=== PATIENT | female | born 1995 | race Hispanic/Latino ===

== ENCOUNTER 2018-03-23 08:00 | Inpatient (IN) | payer BC ==
[~2018-03-23] VITALS: Ht 157.5 cm; Wt 112.5 kg
--- NOTE | 2018-03-29 14:43 | PCM.HP ---
OB-Chief Complaint and HPI Date/Diagnosis Date: Mar 29, 2018 Time: 14:39 Admit Dx: (1) 40 weeks gestation of ICD Codes: Z3A.40 - 40 weeks gestation of SNOMED: 78275052 Chief Complaint/History(PI) : 1 Para: 0 EDC: Mar 23, 2018 EGA: 40w6d Reason for admission: active labor Past Family/Social History Patient History: Diabetes mellitus 33 FATHER, Onset:40's - 50 Hypertension 32 MOTHER, Onset:40's - 50 No known health problems G8 BROTHER G8 SISTER G8 SISTER Blood Type: O+ Rubella: immune RPR/VDRL: Negative GBS Status: Negative HBsAG: Negative OB EXAM Physical Exam Vital Signs: RN Vital Signs have been reviewed: Yes, Weight: 249 Allergies Coded Allergies Type Severity Reaction Last Updated Verified No Known Allergies 03/14/18 No LABS Laboratory Tests Test 03/29/18 14:50 HIV-1 Antibody NON-REACTIVE (NONREACTIVE) HIV-2 Antibody NON-REACTIVE (NONREACTIVE) HEENT: NCAT Lungs: Clear Abdomen: Gravid Reflexes: Normal Cervical Dilatation: 1cm Effacement: 25% Station: -3 Membranes: Intact Heart Rate: 130's Accelerations: Accelerations Present Decelerations: No Decelerations Short Term Variability: Present Penitentiary Variability: Average (6-25) Contractions on Admission: 6-10 Minutes Apart Intensity: Firm Presentation: vertex OB Assessment and Plan Assessment/Plan Reason for admission: active labor Plan: Expectant Management SALVADOR BIGGS MD Mar 29, 2018 14:43
[2018-03-29] MEDS ORDERED: PREN1TAB59 PO (14:45)
[2018-03-29 14:59] LABS: BASOPHIL % 0.1 % (0.0-0.2); EOSINOPHIL # 0.1 10^3/uL (0.0-0.2); EOSINOPHIL % 0.5 % (0.0-5.0); LYMPHOCYTES # 1.9 10^3/uL (1.0-4.8); MEAN CELL HGB 28.1 pg (26-34); MEAN CORP VOLUME 85.2 fL (78-100); MEAN PLATELET VOLUME 10.4 fL (7.8-11.0); MONOCYTES # 0.8 10^3/uL (0.3-0.8); NEUTROPHIL # 12.1 10^3/uL (1.8-7.7); NEUTROPHILS % 80.9 % (41.0-85.0); RED CELL DISTRIBUTION WIDTH 14.8 % (11.5-14.5); WHITE BLOOD CELL 14.9 10^3/uL (4.5-11.0)
[2018-03-29] MEDS ORDERED: D5LR 1000ML 1,000 ML IV SCH (15:00)
[2018-03-29] MEDS ORDERED: XYLOCAINE SQ PRN (15:00)
[2018-03-29] MEDS ORDERED: BICITRA PO ONE (15:00)
[2018-03-29] MEDS ORDERED: PHENERGAN IV PRN (15:00)
[2018-03-29] MEDS ORDERED: DEMEROL IV PRN (15:00)
[2018-03-30] MEDS ORDERED: BENADRYL ONE (01:08)
[2018-03-30] MEDS ORDERED: BENADRYL IV STA (03:15)
[2018-03-30] MEDS ORDERED: LACTATED RINGERS 1,000 ML ONE ×4 (05:14→23:33)
[2018-03-30] MEDS ORDERED: OXYTOCIN 30 UNIT/NS 500 ML 500 ML IV ONE ×2 (05:14→05:15)
[2018-03-30] MEDS ORDERED: LIDOCAINE 1% VIAL ONE (05:14)
[2018-03-30] MEDS ORDERED: PHENERGAN ONE (06:17)
[2018-03-30] MEDS ORDERED: DEMEROL ONE (06:17)
[2018-03-30] MEDS: LACTATED RINGERS 1,000 ML IV SCH ×3 (06:31→18:00)
[2018-03-30] MEDS ORDERED: WATER ONE (08:28)
[2018-03-30] MEDS ORDERED: OXYTOCIN 30 UNIT/NS 500 ML 500 ML IV SCH (11:30)
[2018-03-30] MEDS ORDERED: NAROPIN 0.2% 100 ML BAG 100 ML ONE (13:51)
[2018-03-30] MEDS ORDERED: NAROPIN 0.2% 40 MG/20 ML VIAL ONE ×2 (20:38→20:46)
[2018-03-30] MEDS ORDERED: TYLENOL PO ONE (23:34)
[2018-03-31] MEDS ORDERED: DERMOPLAST SPRAY TP ONE (02:33)
[2018-03-31] MEDS: LACTATED RINGERS 1,000 ML IV SCH (03:23)
--- NOTE | 2018-03-31 05:36 | PCM.OBDEL1 ---
OB Delivery 7-18 Delivery Summary DATE: Mar 31, 2018 TIME: 05:31 Delivery: Spont. Vaginal Delivery, Manual Placenta Extractio (done following separation of umbilical cord from placenta) EBL/ESTIMATED BLOOD LOSS: (MIL: 400 Repair: 2 Degree Summary of Delivery: Patient was fully dilated and felt urge to push. She pushed and delivered a viable male from the ARMEN position with no difficulty. Cord was clamped and cut, and infant was handed to mother. Cord blood and blood gas were collected. Placenta with three vessel cord was delivered by manual extraction, after cord during the delivery of the placenta. Mother was examined for lacerations and found to have a second degree perineal laceration, repaired with 2-0 Vicryl. Fundus was firm. Infant and mother left in room. Infant Information Date of : Mar 31, 2018 Time of : 04:49 (Placenta 0457) Scoring Interval: One (1) Minute (8 Five minute 9) Sex of Infant: Male Weight (Grams): 3801 Presentation: vertex/ARMEN SALVADOR BIGGS MD Mar 31, 2018 05:36
[2018-03-31] MEDS ORDERED: TYLENOL PO PRN ×2 (06:00)
[2018-03-31] MEDS ORDERED: MYLANTA PO PRN (06:00)
[2018-03-31] MEDS ORDERED: DERMOPLAST SPRAY TP PRN (06:00)
[2018-03-31] MEDS ORDERED: TUCKS TP PRN (06:00)
[2018-03-31] MEDS ORDERED: OXYTOCIN 30 UNIT/NS 500 ML 500 ML IV SCH ×2 (06:00)
[2018-03-31] MEDS ORDERED: LANOLIN HYDROUS TP PRN (06:00)
[2018-03-31] MEDS ORDERED: NORCO 5MG PO PRN (06:00)
[2018-03-31] MEDS ORDERED: PITOCIN ONE (06:02)
[2018-03-31] MEDS ORDERED: PITOCIN IM ONE (07:30)
[2018-03-31] MEDS ORDERED: MOTRIN ONE ×2 (09:22→20:42)
[2018-03-31] MEDS ORDERED: NORCO 5MG PO ONE ×2 (09:22→14:20)
[2018-03-31] MEDS: MOTRIN PO PRN ×2 (09:29→20:54)
[2018-03-31] MEDS: NORCO 5MG PO PRN ×2 (09:30→14:27)
[2018-03-31] MEDS ORDERED: TUCKS ONE (09:32)
[2018-03-31] MEDS ORDERED: COLACE PO ONE (20:42)
[2018-03-31] MEDS ORDERED: COLACE PO SCH (21:00)
[2018-04-01] MEDS ORDERED: MOTRIN ONE (03:05)
[2018-04-01] MEDS ORDERED: NORCO 5MG PO ONE (03:06)
[2018-04-01] MEDS: MOTRIN PO PRN (03:10)
[2018-04-01] MEDS: NORCO 5MG PO PRN (03:11)
[2018-04-01 05:03] LABS: BASOPHIL % 0.2 % (0.0-0.2); EOSINOPHIL # 0.3 10^3/uL (0.0-0.2); EOSINOPHIL % 2.7 % (0.0-5.0); HEMOGLOBIN 8.9 g/dL (12.0-15.0); LYMPHOCYTES # 2.7 10^3/uL (1.0-4.8); LYMPHOCYTES % 23.6 % (24.0-44.0); MEAN CELL HGB 27.5 pg (26-34); MEAN CELL HGB CONCENTRATION 31.2 g/dL (33-37); MEAN PLATELET VOLUME 10.2 fL (7.8-11.0); MONOCYTES # 0.9 10^3/uL (0.3-0.8); MONOCYTES % 7.6 % (5.0-12.0); NEUTROPHIL # 7.5 10^3/uL (1.8-7.7); NEUTROPHILS % 65.6 % (41.0-85.0); WHITE BLOOD CELL 11.5 10^3/uL (4.5-11.0)
[2018-04-01] MEDS ORDERED: IBUP-1131 PO (08:17)
--- NOTE | 2018-04-01 08:19 | PRM.DC ---
OB Discharge Summary Discharge Summary Date of Arrival on Unit: Mar 29, 2018 Reason for Visit: Labor Discharge Date: Apr 01, 2018 Patient History: Diabetes mellitus 33 FATHER, Onset:40's - 50 Hypertension 32 MOTHER, Onset:40's - 50 No known health problems G8 BROTHER G8 SISTER G8 SISTER History of Present Illness: (1) 40 weeks gestation of Status: Resolved ICD Code: Z3A.40 - 40 weeks gestation of SNOMED: 37464387 (2) Vaginal delivery ICD Code: O80 - Encounter for full-term uncomplicated delivery SNOMED: 339311200 Complications: No Complications Medications: Motrin Discharge Diagnosis: Status Post Discharge Disposition: SALVADOR Sykes MD Apr 01, 2018 08:19
--- NOTE | 2018-04-01 08:20 | PRM.PN ---
Subjective Progress Notes Post Op/Hospital Day: Hospital day #: (4 PPD1 s/p ) Subjective: Feels better, Less pain Objective Vital Signs and I&O BP: 113/53 HR: 80 RR: 18 T: 98.0F SO2: 98% General: No acute distress Respiratory Auscultation: Normal Breath Sounds Cardiovascular auscultation: Normal S1 S2, RRR Gastrointestinal: Comment (Fundus firm) Skin: Normal Neurological: Normal mental status Meds/Labs/Orders Medication List: Current Medications Medications (Trade) Dose Ordered Sig/Angelica PRN Reason Start Time Stop Time Status Last Admin Acetaminophen (Tylenol) 650 mg Q4HR PRN PAIN MILD 03/31/18 06:00 04/30/18 05:59 Acetaminophen (Tylenol) 1,000 mg Q6HR PRN PAIN 03/31/18 00:00 04/30/18 00:00 03/31/18 03:23 Acetaminophen/ Hydrocodone Bitart ([place] 5mg) 1 ea Q4HR PRN PAIN MODERATE 03/31/18 06:00 04/30/18 05:59 04/01/18 03:11 Acetaminophen/ Hydrocodone Bitart ([place] 5mg) 2 ea Q4HR PRN PAIN SEVERE 03/31/18 06:00 04/30/18 05:59 Benzocaine (Dermoplast Briggs) To perineum PRN sut... PRN PRN Perineal Pain 03/31/18 06:00 04/30/18 05:59 03/31/18 09:36 Dextrose/Lactated Ringer's 1,000 ml @ 125 mls/hr IV 03/29/18 15:00 04/28/18 14:59 Docusate Sodium (Colace) 100 mg HS 03/31/18 21:00 04/30/18 20:59 03/31/18 20:53 Ibuprofen (Motrin) 800 mg Q6HR PRN CRAMPING/PAIN 03/31/18 06:00 04/30/18 05:59 04/01/18 03:10 Lanolin (Lanolin Hydrous) Apply to nipples PRN dry, pain... TID PRN pain/cracking 03/31/18 06:00 04/30/18 05:59 Meperidine HCl (Demerol) 50 mg Q4H PRN PAIN 03/29/18 15:00 04/28/18 14:59 03/30/18 06:32 Promethazine HCl (Phenergan) 25 mg Q4H PRN NAUSEA / VOMITING 03/29/18 15:00 04/28/18 14:59 03/30/18 06:31 Witch Virgen (Tucks) To perineal area ... PRN PRN Hemorrhoids 03/31/18 06:00 04/30/18 05:59 03/31/18 09:36 Lab results: Laboratory Tests Test 04/01/18 04:40 White Blood Count 11.5 10^3/uL Red Blood Count 3.24 10^6/uL Hemoglobin 8.9 g/dL Hematocrit 28.5 % Mean Corpuscular Volume 88.0 fL Mean Corpuscular Hemoglobin 27.5 pg Mean Corpuscular Hemoglobin Concent 31.2 g/dL Red Cell Distribution Width 15.0 % Platelet Count 219 10^3/uL Mean Platelet Volume 10.2 fL Neutrophils (%) (Auto) 65.6 % Lymphocytes (%) (Auto) 23.6 % Monocytes (%) (Auto) 7.6 % Neutrophils # (Auto) 7.5 10^3/uL Lymphocytes # (Auto) 2.7 10^3/uL Monocytes # (Auto) 0.9 10^3/uL Absolute Immature Granulocyte (auto 0.04 10^3 u/L Eosinophils % 2.7 % Basophils % 0.2 % Basophils # 0.0 10^3/uL Eosinophil Count 0.3 10^3/uL Percent Immature Gran (Cell Imm) 0.30 % My orders: Orders - SALVADOR BIGGS MD Continuous Monitoring (03/30/18 11:24) Baseline Vs Prior To Initiat (03/30/18 11:24) Strick I&O Q4hr (03/30/18 11:24) Acetaminophen (Tylenol) (03/31/18 00:00) Routine Vital Signs (03/31/18 05:36) Activity Advance As Tolerated (03/31/18 05:36) Ice Pk To Episiotomy/Tear (03/31/18 05:36) Sitz Bath Prn (03/31/18 05:36) Docusate Sodium (Colace) (03/31/18 21:00) Lanolin,Anhydrous (Lanolin Hydrous) (03/31/18 06:00) Ibuprofen (Motrin) (03/31/18 06:00) Acetaminophen (Tylenol) (03/31/18 06:00) Hydrocodone/Acetaminophen ([place] 5mg) (03/31/18 06:00) Hydrocodone/Acetaminophen ([place] 5mg) (03/31/18 06:00) Mag Hydrox/Aluminum Hyd/Simeth (Mylanta) (03/31/18 06:00) Benzocaine/Lanolin/Aloe Vera (Dermoplast (03/31/18 06:00) Witch Virgen (Tucks) (03/31/18 06:00) Regular Diet (03/31/18 Breakfast) Discharge (04/01/18 08:17) Plan Assessment Problems: (1) 40 weeks gestation of Status: Resolved ICD Code: Z3A.40 - 40 weeks gestation of SNOMED: 39936910 (2) Vaginal delivery Status: Resolved ICD Code: O80 - Encounter for full-term uncomplicated delivery SNOMED: 781368901 Plan Activity: Increase ambulation Diet: Continue current Nursing: Discharge today SALVADOR BIGGS MD Apr 01, 2018 08:20
[2018-04-01 10:04] VITALS: BP 113/53
== END 2018-04-01 16:00 | disposition home or self-care (01) | DRG 807 ==
LOC: LND 03-29 14:21
PROVIDERS: ADMIT Obstetrics & Gynecology; ATTEND Obstetrics & Gynecology
PROC: 10E0XZZ Delivery of Products of Conception, External Approach (ICD-10-PCS; principal; 2018-03-31)
PROC: 0KQM0ZZ Repair Perineum Muscle, Open Approach (ICD-10-PCS; 2018-03-31)
PROC: 3E0R3BZ Introduction of Anesthetic Agent into Spinal Canal, Percutaneous Approach (ICD-10-PCS; 2018-03-31)
PROC: 00HU33Z Insertion of Infusion Device into Spinal Canal, Percutaneous Approach (ICD-10-PCS; 2018-03-31)
DX: O70.1 Second degree perineal laceration during delivery (principal); Z37.0 Single live birth; O77.0 Labor and delivery complicated by meconium in amniotic fluid; O76 Abnormality in fetal heart rate and rhythm complicating labor and delivery; O99.214 Obesity complicating childbirth; E66.9 Obesity, unspecified; Z3A.40 40 weeks gestation of pregnancy; Z82.49 Family history of ischemic heart disease and other diseases of the circulatory system; Z83.3 Family history of diabetes mellitus
CPT/HCPCS: 36415; 59400; 85025; 86318; 86900; 96372; G0378; J1200; J2001; J2175; J2550; J2590; J2795; J7120